=== PATIENT | female | born 1935 | race Caucasian/White ===

== ENCOUNTER 2021-02-27 08:02 | Day surgery (SDC) | payer MEDICARE ==
[~2021-02-27] VITALS: Ht 149.9 cm; Wt 75.5 kg
[2021-02-27] MEDS ORDERED: CLINDAmcin 900mg/NS 50ml IVPB 50 ML IV ONE (08:30)
[2021-02-27] MEDS ORDERED: VANCOMYCIN 1,500MG inj. 1,500 MG in normal saline 250ml IV soln 300 ML IV ONE (08:30)
[2021-02-27 08:35] VITALS: BP 121/51
[2021-02-27] MEDS ORDERED: FURO40TA4 PO (08:58)
[2021-02-27] MEDS ORDERED: TIMO5DRO4 EACHEYE (08:58)
[2021-02-27] MEDS ORDERED: LATA2.5D14 EACHEYE (08:58)
[2021-02-27] MEDS ORDERED: SPIR25TA5 PO (08:58)
[2021-02-27] MEDS ORDERED: ACYC200C30 PO (08:58)
[2021-02-27] MEDS ORDERED: LANTUS SQ (08:58)
[2021-02-27] MEDS ORDERED: LIRA0.6P2 SQ (08:58)
[2021-02-27] MEDS ORDERED: RIVA15TA PO (08:58)
[2021-02-27] MEDS ORDERED: LEVO137T2 PO (08:58)
[2021-02-27] MEDS ORDERED: BRIN8DRO EACHEYE (08:58)
[2021-02-27] MEDS ORDERED: PRAV80TA3 PO (08:58)
[2021-02-27 09:27] LABS: BASOPHILS % (AUTO) 0.7 % (0-1); EOSINOPHILS # (AUTO) 0.1 X10'3 (0-0.9); EOSINOPHILS % (AUTO) 2.1 % (0-6); HEMATOCRIT 32.4 % (35.0-45.0); HEMOGLOBIN 10.7 g/dl (12.0-16.0); LYMPHOCYTES # (AUTO) 0.7 X10'3 (1.1-4.8); LYMPHOCYTES % (AUTO) 11.7 % (21-51); MEAN CORPUSCULAR HEMOGLOBIN 30.1 PG (27.0-31.0); MEAN CORPUSCULAR VOLUME 91.3 FL (78-98); MEAN PLATELET VOLUME 8.5 FL (7.4-10.4); MONOCYTES # (AUTO) 0.5 X10'3 (0-0.9); MONOCYTES % (AUTO) 7.6 % (2-12); NEUTROPHILS # (AUTO) 4.7 X10'3 (1.8-7.7); NEUTROPHILS % (AUTO) 77.9 % (42-75); PLATELET COUNT 191 X10'3 (140-440); RED BLOOD COUNT 3.54 X10'6 (4.20-5.60); RED CELL DISTRIBUTION WIDTH 14.6 % (11.5-14.5)
[2021-02-27 09:52] LABS: ALBUMIN 2.8 G/DL (3.4-5.0); ANION GAP 9 (8-16); BLOOD UREA NITROGEN 21 MG/DL (7-18); BUN/CREATININE RATIO 14.6 (6.6-38.0); CALCIUM 8.2 MG/DL (8.5-10.1); CHLORIDE 108 MMOL/L (99-107); CREATININE 1.44 MG/DL (0.40-0.90); GLUCOSE 108 MG/DL (70-104); POTASSIUM 4.5 MMOL/L (3.5-5.1); SODIUM 140 MMOL/L (135-145); eGFR 34 ML/MIN
[2021-02-27 10:00] VITALS: BP 136/42
== END 2021-02-27 10:10 | disposition other institution (70) ==
LOC: SSTAY O 08:02
PROVIDERS: ATTEND Internal Medicine Cardiovascular Disease
DX: I49.5 Sick sinus syndrome (principal); Z53.8 Procedure and treatment not carried out for other reasons; I48.0 Paroxysmal atrial fibrillation; I50.22 Chronic systolic (congestive) heart failure; E11.21 Type 2 diabetes mellitus with diabetic nephropathy; G47.30 Sleep apnea, unspecified; E03.9 Hypothyroidism, unspecified; E78.5 Hyperlipidemia, unspecified; E11.39 Type 2 diabetes mellitus with other diabetic ophthalmic complication; H42 Glaucoma in diseases classified elsewhere; D50.9 Iron deficiency anemia, unspecified; Z79.899 Other long term (current) drug therapy; Z79.01 Long term (current) use of anticoagulants; Z79.82 Long term (current) use of aspirin; Z79.4 Long term (current) use of insulin; Z90.710 Acquired absence of both cervix and uterus; Z90.49 Acquired absence of other specified parts of digestive tract; Z98.890 Other specified postprocedural states; Z72.89 Other problems related to lifestyle; Z87.891 Personal history of nicotine dependence; Z88.0 Allergy status to penicillin; Z88.8 Allergy status to other drugs, medicaments and biological substances
CPT/HCPCS: 36415; 80048; 83735; 85025; 85610; 93005

== ENCOUNTER 2021-03-02 08:51 | Day surgery (SDC) | payer MEDICARE ==
[2021-03-02] VITALS (7 sets, daily range): BP systolic 117–136; BP diastolic 32–49
[~2021-03-02] VITALS: Ht 147.3 cm; Wt 75.7 kg
[~2021-03-02 08:51] MED LIST: ACYC200C30 PO; BRIN8DRO EACHEYE; FURO40TA4 PO; LANTUS SQ; LATA2.5D14 EACHEYE; LEVO137T2 PO; LIRA0.6P2 SQ; PRAV80TA3 PO; RIVA15TA PO; SPIR25TA5 PO; TIMO5DRO4 EACHEYE
[2021-03-02] MEDS ORDERED: clindamycin-Cleocin 900mg/D5W 50 ML IV ONE (09:25)
[2021-03-02] MEDS ORDERED: VANCOMYCIN 1,500MG inj. 1,500 MG in normal saline 500ml IV soln 300 ML IV ONE (09:25)
[2021-03-02] MEDS ORDERED: POLY17PO10 PO (10:14)
[2021-03-02] MEDS ORDERED: ACET-1025 PO (10:14)
[2021-03-02] MEDS ORDERED: RESTASIS (10:14)
[2021-03-02] MEDS ORDERED: NITR0.4T51 SL (10:14)
[2021-03-02] MEDS ORDERED: TRAZ-251 PO (10:14)
[2021-03-02] MEDS ORDERED: ferrous gluconate PO (10:14)
[2021-03-02 10:25] LABS: EOSINOPHILS # (AUTO) 0.1 X10'3 (0-0.9); LYMPHOCYTES # (AUTO) 0.8 X10'3 (1.1-4.8); MONOCYTES # (AUTO) 0.6 X10'3 (0-0.9)
[2021-03-02 10:26] LABS: ANION GAP 9 (8-16); BLOOD UREA NITROGEN 22 MG/DL (7-18); BUN/CREATININE RATIO 15.4 (6.6-38.0); CALCIUM 7.4 MG/DL (8.5-10.1); CHLORIDE 108 MMOL/L (99-107); CREATININE 1.43 MG/DL (0.40-0.90); GLUCOSE 95 MG/DL (70-104); POTASSIUM 4.1 MMOL/L (3.5-5.1); SODIUM 140 MMOL/L (135-145); TOTAL CARBON DIOXIDE 23.3 MMOL/L (24-32); eGFR 35 ML/MIN
[2021-03-02 10:27] LABS: BASOPHILS % (AUTO) 0.3 % (0-1); EOSINOPHILS % (AUTO) 1.9 % (0-6); HEMATOCRIT 34.6 % (35.0-45.0); HEMOGLOBIN 11.5 g/dl (12.0-16.0); LYMPHOCYTES % (AUTO) 15.3 % (21-51); MEAN CORPUSCULAR HEMOGLOBIN 30.1 PG (27.0-31.0); MEAN CORPUSCULAR HGB CONC 33.2 g/dL (33.0-36.5); MEAN CORPUSCULAR VOLUME 90.6 FL (78-98); MEAN PLATELET VOLUME 8.8 FL (7.4-10.4); MONOCYTES % (AUTO) 11.6 % (2-12); NEUTROPHILS # (AUTO) 3.8 X10'3 (1.8-7.7); NEUTROPHILS % (AUTO) 70.9 % (42-75); PLATELET COUNT 216 X10'3 (140-440); RED BLOOD COUNT 3.82 X10'6 (4.20-5.60); RED CELL DISTRIBUTION WIDTH 14.6 % (11.5-14.5); WHITE BLOOD COUNT 5.4 X10'3 (4.5-11.0)
[2021-03-02] MEDS ORDERED: midazolam 1 mg/ML 2ml injection ONE ×2 (11:29→12:14)
[2021-03-02] MEDS ORDERED: fentaNYL/PF 50MCG/1 ML 2ML syringe ONE (11:30)
[2021-03-02] MEDS ORDERED: LIDOcaine 1% w/EPI 1:100,000 30ml vial (MDV) ONE (11:32)
[2021-03-02] MEDS ORDERED: vancomycin 1,000mg inj ONE (12:05)
--- NOTE | 2021-03-02 12:35 | NUR ---
Problems reprioritized. Patient report given, questions answered & plan of care reviewed with Genaro APPLE.
[2021-03-02] MEDS ORDERED: normal saline 1000ml 1,000 ML IV SCH (13:30)
== END 2021-03-02 15:25 | disposition home or self-care (01) ==
LOC: SSTAY O 08:51
PROVIDERS: ATTEND Internal Medicine Cardiovascular Disease
DX: I49.5 Sick sinus syndrome (principal); I11.0 Hypertensive heart disease with heart failure; I50.32 Chronic diastolic (congestive) heart failure; I48.0 Paroxysmal atrial fibrillation; E11.21 Type 2 diabetes mellitus with diabetic nephropathy; G47.30 Sleep apnea, unspecified; E03.9 Hypothyroidism, unspecified; E78.5 Hyperlipidemia, unspecified; H40.9 Unspecified glaucoma; D50.9 Iron deficiency anemia, unspecified; Z79.899 Other long term (current) drug therapy; Z79.82 Long term (current) use of aspirin; Z90.710 Acquired absence of both cervix and uterus; Z90.49 Acquired absence of other specified parts of digestive tract; Z98.890 Other specified postprocedural states; Z87.891 Personal history of nicotine dependence; Z72.89 Other problems related to lifestyle; Z88.0 Allergy status to penicillin; Z88.8 Allergy status to other drugs, medicaments and biological substances
CPT/HCPCS: 33208; 36415; 71045; 80048; 82948; 83735; 85025; 85610; 93005; 99152; 99153; C1785; C1894; C1898; J2250; J3010; J3370; J3490; J7030; J7040; A4565; A4620; A6258